=== PATIENT | female | born 1995 | race Caucasian/White ===

== ENCOUNTER 2022-09-18 21:53 | Emergency (ER) | payer OTHER ==
--- NOTE | 2022-09-18 22:08 | ED Physician Documentation ---
History of Present Illness - Stated complaint Stated Complaint: FIT - History obtained from History obtained from: Patient - Additonal information Additional information: 27-year-old woman presents bib police for FIT for confinement. Patient used methamphetamine tonight and got into altercation with police. she states her R foot and R knee hurt. does have shallow laceration to R knee. ambulatory without difficulty Review of Systems Skin: reports: Laceration (s) Musculoskeletal: reports: Extremity pain PD PAST MEDICAL HISTORY - Allergies Allergies/Adverse Reactions: Allergies Allergy/AdvReac Type Severity Reaction Status Date / Time No Known Drug Allergies Allergy Verified 09/18/22 22:04 PD ED PE NORMAL - Vitals Vital signs reviewed: Yes - General General: Other (alert, intoxicated with methamphetamine) - HEENT HEENT: Atraumatic, PERRL, EOMI - Neck Neck: No bony TTP - Back Back: No spinal TTP - Derm Derm: Normal color, Warm and dry, Other (shallow laceration horizontal superolateral to R knee. hemostatic) - Extremities Extremities: No deformity, Other (R foot nontender to palpation. 2+ DP pulse. normal sensation and movement. normal ROM) - Neuro Neuro: No motor deficit, No sensory deficit Procedures - Laceration (location) Lower extremity right Length in cm: 4 Wound type: Linear Neurovascular status: Sensory intact, Motor intact, Vascular intact Wound preparation: Betadine, Irrigated copiously NS, Wound explored, To the base Skin layer closure: Dermabond, Steri strips Other: Patient tolerated well, No complications, Neurovascular intact, Dressing applied, Tetanus UTD (3 years ago per patient) PD Medical Decision Making - ED course ED course: 27yF p/w laceration of R knee and complaint of R foot pain. she refused stitches but agreeable to skin glue and steri strips. R foot appears uninjured on exam. dc to skilled nursing. f/u instructions provided on form. return precautions given. Departure - Departure Disposition: 01 Home, Self Care Clinical Impression: Methamphetamine abuse, Laceration of knee Condition: Good Instructions: ED Laceration All Comments: Karey was seen in the emergency department for a cut on her right knee. She cut it cleaned out, Steri-Strips were applied, and had a layer of skin glue on top of that. It will fall off on its own. Monitor for signs of infection. Do not remove bandaid for 48 hours and change daily thereafter. leave the steristrips on at least 2 weeks. Return for other concerns.
[2022-09-18 22:11] VITALS: BP 132/90
== END 2022-09-18 22:12 | disposition home or self-care (01) ==
LOC: ED 21:53
DX: S81.011A Laceration without foreign body, right knee, initial encounter (principal); W45.8XXA Other foreign body or object entering through skin, initial encounter; Y93.89 Activity, other specified; F15.129 Other stimulant abuse with intoxication, unspecified
CPT/HCPCS: 12002; 99281